=== PATIENT | male | born 1945 | race Caucasian/White ===

== ENCOUNTER → 2023-04-13 10:14 | Outpatient (REF) | payer OTHER, SELFPAY ==
[2023-04-13 10:51] LABS: % Basophils 0.4 % (0-2); % Eosinophils 9.5 % (0-6); % Immature Granulocytes 0.2 % (0-0.5); % Lymphocytes 35.5 % (20.5-51.1); % Neutrophils 44.4 % (42.2-75.2); Absolute Eosinophils 0.5 10^3/uL (0-0.7); Absolute Lymphocytes 1.7 10^3/uL (1.2-3.4); Absolute Monocytes 0.5 10^3/uL (0.1-0.6); Absolute Neutrophils 2.1 10^3/uL (1.4-6.5); Hematocrit 32.6 % (39.0-52.0); Hemoglobin 11.3 g/dL (13.0-18.0); Mean Corp Hgb Conc. 34.7 g/dL (33.0-37.0); Mean Corpuscular Hgb 29.3 pg (27.0-31.0); Mean Corpuscular Volume 84.5 fL (80.0-94.0); Nucleated Red Blood Cells % 0 % (-); Platelet Count 178 10^3/uL (130-400); Red Blood Cell Count 3.86 10^6/uL (4.70-6.10); Red Cell Dist. Width 13.6 % (11.5-14.5); White Blood Cell Count 4.8 10^3/uL (4.8-10.8)
[2023-04-13 11:24] LABS: ALT (SGPT) < 10 U/L (0-50); AST (SGOT) 19 U/L (17-59); Albumin 3.8 g/dl (3.5-5.0); Alkaline Phosphatase 95 U/L (38-126); Blood Urea Nitrogen 24 mg/dl (9-20); Carbon Dioxide 26 mmol/L (22-30); Chloride 109 mmol/L (98-107); Glucose 100 mg/dl (70-99); Potassium 4.1 mmol/L (3.5-5.1); Sodium 139 mmol/L (135-145); Total Bilirubin 0.5 mg/dl (0.2-1.3); Total Protein 6.7 g/dl (6.3-8.2); eGFR 56.93
[2023-04-13 12:18] LABS: Erythrocyte Sed Rate 31 mm/hour (0-20)
[2023-04-13 12:40] LABS: Hepatitis C Antibody Negative (Negative)
[2023-04-15 21:17] LABS: CCP Antibody IgG/IgA 6 Units (0-19)
[2023-04-15 21:28] LABS: ANA, IgG Reflex to HEp-2 None Detected (None Detected)
[2023-04-16 16:19] LABS: Rheumatoid Agglutinin Less Than 10 IU (<10 IU)
[2023-04-16 18:18] LABS: Quantiferon Mitogen minus NIL >10.00 IU/mL; Quantiferon NIL 0.02 IU/mL; Quantiferon Plus TB1 minus NIL 0.01 IU/mL (0.00-0.34); Quantiferon Plus TB2 minus NIL 0.01 IU/mL (0.00-0.34); Quantiferon TB Gold Plus Negative (Negative)
== END ==
LOC: REG 10:14
PROVIDERS: ATTENDING PHYSICIAN Internal Medicine Rheumatology; FAMILY PHYSICIAN Family Medicine
DX: M19.90 Unspecified osteoarthritis, unspecified site (principal)
CPT/HCPCS: 36415; 80053; 85025; 85652; 86038; 86140; 86200; 86430; 86480; 86803

== ENCOUNTER 2023-12-10 07:53 | Emergency (ER) | payer OTHER, SELFPAY ==
[2023-12-10 08:04] VITALS: BP 149/77
[2023-12-10 08:16] VITALS: BP 166/83
--- NOTE | 2023-12-10 08:16 | ED.GENMED ---
History of Present Illness
General
Chief Complaint: Weakness
Time Seen by Provider: 12/10/23 08:10
History of Present Illness
History of Present Illness:
TIME OF INITIAL ENCOUNTER: 8:20 AM
HPI: 2 days ago, the patient started having sore throat, general unwell feeling, sensation of anxiety, and weakness. Yesterday, he thought he is getting better but then had some chills last evening. He has no abdominal pain. He has no shortness
of breath. He has no productive cough. He does not necessarily feel dehydrated.
EXAM:
GENERAL: Well appearing in no distress, but does appear somewhat weak
HEENT: Moist oral mucosa
CARDIOVASCULAR: No murmurs, normal heart rate, regular rhythm, No chest wall tenderness
PULMONARY: No respiratory distress, breath sounds are clear and equal however there are some very questionable very faint rales at the right base
ABDOMEN: Soft with no peritoneal signs, no tenderness
NEUROLOGIC: Excellent strength all extremities, no coordination deficits
PSYCHIATRIC: Appropriate mental status, normal insight and judgement
EXTREMITIES: Nontender, no edema, moves all extremities equally
SKIN: No rash, no lesions
NUMBER AND COMPLEXITY OF PROBLEMS ADDRESSED AT THE ENCOUNTER
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
� Acute Exacerbation and/or Progression of Chronic Illness: This is an acute problem
� Differential Diagnosis includes: Viral syndrome such as COVID/flu, dehydration, EFRAIN, pneumonia, anxiety
AMOUNT AND/OR COMPLEXITY OF DATA TO BE REVIEWED AND ANALYZED
� I performed an independent evaluation of and my interpretation is:
EKG: Sinus 51, normal axis, right bundle branch block with associated ST abnormality, rate is decreased compared to 10/01/2022
CT:
X-rays: Chest x-ray personally reviewed and is unremarkable
Laboratory Studies: White count normal 5.7, hemoglobin 11.2 (which is near baseline), creatinine 1.4 with baseline around 1.2-1.3. COVID and flu testing negative
Other:
� Review of other/old records: The patient was here about a year ago with right-sided ureteral stone managed with laser lithotripsy and stent. Hemoglobin from March 2023 was 11.3.
� Clinical information was obtained by an independent historian: None needed
� Prescriptions/Medications Considered but not given:
� Further testing considered but not performed:
RISK OF COMPLICATIONS AND/OR MORBIDITY OR MORTALITY OF PATIENT MANAGEMENT
� Social determinants of health affecting care: Lives at home with , drove him here
� Discussion with other providers:
� Escalation of care including admission/observation vs risk of discharge considered: The patient does report significant component of anxiety. Will give a dose of IV Ativan. His vital signs are unremarkable. IV fluids also
given as there has been slight worsening of creatinine.
ANY OTHER UPDATES:
9:40 AM: I reassessed patient. Overall the patient feels improved. He feels well enough to go home. We talked about the possibly of a viral syndrome.
Past History
Past History
ED Past Medical History: Cancer (Lymphoma, [place] cell carcinoma), HTN, Hypercholesterolemia and Other (BPH, DARRION CELL CANCER (RADIATION THERAPY SUMMER 2016))
ED Past Surgical History: Cholecystectomy, Orthopedic (Rotator cuff) and Other (Varicocele, LN RESECTION)
Social History
Tobacco: Former smoker
Alcohol: Occasional
Drug: None
Personal:
Living: with family
Family History
Family History: Negative Diabetes, Hypertension, Early CAD, Asthma or Cancer
Phy Exam
Physical Exam
Physical Exam:
See HPI
Course
Orders/Labs/Results
Orders:
Orders
12/10/23 08:22
0.9% Sodium Chloride 1000 ml [Nss] 1,000 ml IV BOLUS
CR Chest - 2 Views Urgent
Comment:
Reason For Exam: chills
12/10/23 08:26
Electrocardiogram (*1) Urgent
Reason for Study: Vertigo / Dizzy
EKG- Treatment ONCE
Lorazepam [Ativan] 1 mg IV NOW STA
12/10/23 08:27
COVID-19 Antigen Urgent
Source: Nasal Swab
Complete Blood Count/With Diff Urgent
Comprehensive Metabolic Panel Urgent
Influenza A+B Rapid Molecular Urgent
NIRALI Source: Nasal Swab
Specimen Description:
Abnormal Lab Results
12/10/23
08:27
RBC 4.00 L 10^6/uL
(4.70-6.10)
Hgb 11.2 L g/dL
(13.0-18.0)
Hct 32.2 L %
(39.0-52.0)
Absolute Monos (auto) 0.7 H 10^3/uL
(0.1-0.6)
Monocytes % 12.7 H %
(1.7-9.3)
BUN 27 H mg/dl
(9-20)
Creatinine 1.4 H mg/dL
(0.7-1.3)
Glucose 116 H mg/dl
(70-99)
AST 16 L U/L
(17-59)
Total Protein 6.0 L g/dl
(6.3-8.2)
12/10/23 08:27
12/10/23 08:27
Vital Signs
Initial and Last Documented VS:
Initial Vital Signs
Temp Pulse Resp BP Pulse Ox
98.5 F 52 16 149/77 98
12/10/23 08:04 12/10/23 08:04 12/10/23 08:04 12/10/23 08:04 12/10/23 08:04
Last Documented Vital Signs
Temp Pulse Resp BP Pulse Ox
98.5 F 52 16 149/77 98
12/10/23 08:04 12/10/23 08:04 12/10/23 08:04 12/10/23 08:04 12/10/23 08:04
*Critical Care Note
Total Time (30-74mins, 75-104mins- exclusive of procedures): Not Applicable
ED Attending Note
-
Portions of this chart may have been created with voice recognition software.� Occasional wrong word or��sound alike� substitutions may have occurred due to the inherent limitations of voice recognition software.
Discharge Plan
Departure
Prescriptions:
No Action
tamsulosin 0.4 MG capsule
0.4 mg PO HS
prednisone 20 mg Tablet
7 mg PO .QAM
finasteride 5 mg Tablet
5 mg PO HS
prednisone
5 mg PO HS
Referrals:
Perfecto Ro, DO [Family Provider] -
Interventions
Interventions:
*Risk Screen - Suicide Last Done: 12/10/23 08:04
*General Assessment Last Done: 12/10/23 08:19
*Neglect/Abuse Screening Last Done: 12/10/23 08:04
*ED COVID-19 Vaccine History Last Done: 12/10/23 08:19
ED- Cardiac Assessment Last Done: 12/10/23 08:19
ED- Neurological Assessment Last Done: 12/10/23 08:19
ED- Pulmonary Assessment Last Done: 12/10/23 08:19
Discharge Date and Time
Print Language: TELUGU
[2023-12-10 08:34] LABS: % Basophils 0.3 % (0-2); % Eosinophils 3.5 % (0-6); % Immature Granulocytes 0.2 % (0-0.5); % Lymphocytes 24.1 % (20.5-51.1); % Monocytes 12.7 % (1.7-9.3); % Neutrophils 59.2 % (42.2-75.2); Absolute Eosinophils 0.2 10^3/uL (0-0.7); Absolute Lymphocytes 1.4 10^3/uL (1.2-3.4); Absolute Monocytes 0.7 10^3/uL (0.1-0.6); Absolute Neutrophils 3.4 10^3/uL (1.4-6.5); Hematocrit 32.2 % (39.0-52.0); Hemoglobin 11.2 g/dL (13.0-18.0); Mean Corp Hgb Conc. 34.8 g/dL (33.0-37.0); Mean Corpuscular Volume 80.5 fL (80.0-94.0); Mean Platelet Volume 9.2 fL (7.4-10.4); Nucleated Red Blood Cells % 0 % (-); Platelet Count 137 10^3/uL (130-400); Red Cell Dist. Width 12.9 % (11.5-14.5); White Blood Cell Count 5.7 10^3/uL (4.8-10.8)
[2023-12-10] MEDS: ATIVAN 1 MG IV (08:35)
[2023-12-10] MEDS: NSS 1000 IV (08:36)
[2023-12-10 08:50] LABS: ALT (SGPT) < 10 U/L (0-50); AST (SGOT) 16 U/L (17-59); Albumin 3.8 g/dl (3.5-5.0); Alkaline Phosphatase 81 U/L (38-126); Blood Urea Nitrogen 27 mg/dl (9-20); Calcium 8.9 mg/dl (8.4-10.2); Carbon Dioxide 27 mmol/L (22-30); Chloride 105 mmol/L (98-107); Glucose 116 mg/dl (70-99); Potassium 4.1 mmol/L (3.5-5.1); Sodium 141 mmol/L (135-145); Total Bilirubin 0.6 mg/dl (0.2-1.3); eGFR 52.09
[2023-12-10 09:00] VITALS: BP 178/84
[2023-12-10 09:06] LABS: COVID-19 Antigen Negative (Negative)
[2023-12-10 10:10] VITALS: BP 155/102
== END 2023-12-10 10:54 | disposition home or self-care (01) ==
LOC: EMR 07:53
PROVIDERS: EMERGENCY PHYSICIAN Emergency Medicine; FAMILY PHYSICIAN Family Medicine
DX: B34.9 Viral infection, unspecified (principal); R07.0 Pain in throat; R53.1 Weakness; F41.9 Anxiety disorder, unspecified; N40.0 Benign prostatic hyperplasia without lower urinary tract symptoms; I25.10 Atherosclerotic heart disease of native coronary artery without angina pectoris; I10 Essential (primary) hypertension; E78.00 Pure hypercholesterolemia, unspecified; Z82.49 Family history of ischemic heart disease and other diseases of the circulatory system; Z85.821 Personal history of Merkel cell carcinoma; Z87.891 Personal history of nicotine dependence; Z90.49 Acquired absence of other specified parts of digestive tract
CPT/HCPCS: 99283; 96374; 96361; 71046; 80053; 85025; 87502; 87811; 93005

== ENCOUNTER 2024-12-29 07:18 | Emergency (ER) | payer OTHER, SELFPAY ==
[2024-12-29 07:22] VITALS: BP 103/65
[2024-12-29 07:51] VITALS: BMI 26.5
--- NOTE | 2024-12-29 08:19 | ED.GENMED ---
History of Present Illness
<Mena Keyes MD, Resident - Last Filed: 12/29/24 14:42>
General
Chief Complaint: Fatigue
Source: patient and family
Time Seen by Provider: 12/29/24 07:43
History of Present Illness
History of Present Illness:
79-year-old male with past medical history of [place] cell carcinoma status post radiation and immunotherapy treatment, non-Hodgkin's lymphoma presents to the ER with fatigue. About 3 weeks ago, the patient was diagnosed with immunotherapy induced
colitis. He was treated by a high-dose prednisone taper starting with 80 mg for 5 days, 60 mg for 5 days etc. etc. 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
steroids to 7 mg of prednisone daily. Since December 24, patient has felt very weak and fatigued. He called Dr. Sibley who then increased his prednisone to 8 mg daily. There has been no change in his energy levels. He endorses sweats however denies
any fevers, runny nose, sore throat, sneezing, ear pain, shortness of breath, cough, nausea, vomiting, diarrhea, new rash, dysuria, hematuria, melena, hematochezia. His only true complaint is fatigue. He thinks it might be due to the lower dose of
prednisone. He came in for evaluation to make sure is not anything else. His baseline BP runs low. Despite no upper respiratory tract infection symptoms, his did a COVID swab this morning which was negative.
He was previously on Keytruda however developed severe arthritis and for the last 6 months he has been on ipilimumab and nivolumab immunotherapy with infusions every 2 weeks. He did have an issue with high blood sugars with keytruda but since he has
been off it that has resolved. He denies ever having diabetes. ([id number] 09/27/22 7.4).
Oncologist: Dr. Desai at [facility]
Engine Maintenance Mechanic: Dr. Sarkis Frazier
Past History
<Mena Keyes MD, Resident - Last Filed: 12/29/24 14:42>
Past History
ED Past Medical History: Cancer (Lymphoma, Darrion cell carcinoma), HTN, Hypercholesterolemia and Other (BPH, DARRION CELL CANCER (RADIATION THERAPY SUMMER 2016))
ED Past Surgical History: Cholecystectomy, Orthopedic (Rotator cuff) and Other (Varicocele, LN RESECTION)
Social History
Tobacco: Former smoker
Alcohol: Occasional
Drug: None
Personal:
Living: with family
Family History
Family History: Negative Diabetes, Hypertension, Early CAD, Asthma or Cancer
Review of Systems
<Mena Keyes MD, Resident - Last Filed: 12/29/24 14:42>
Review of Systems
Allergies reviewed?: Yes
Constitutional: Reports other (Sweats )
EENT: Reports no symptoms
Respiratory: Reports no symptoms
Cardiac: Reports no symptoms
ABD/GI: Reports no symptoms
: Reports no symptoms
Musculoskeletal: Reports no symptoms
Skin: Reports no symptoms
Neurological: Reports no symptoms
Endocrine: Reports no symptoms
Hematologic/Lymphatic: Reports no symptoms
Psychiatric: Reports no symptoms
Phy Exam
<Mena Keyes MD, Resident - Last Filed: 12/29/24 14:42>
Physical Exam
Physical Exam:
General: Well-appearing, nontoxic, sitting up in bed and conversant
Head: Atraumatic
Eyes: PERRLA
ENT: Nasal turbinates not inflamed, normal tympanic membranes, no pharyngeal erythema, moist oral mucosa
Cardiac: Regular S1, S2, no murmurs
Respiratory: Clear breath sounds bilaterally, no wheezes or rails
Abdomen: Soft, nontender, nondistended, normal bowel sounds
Neurological: Cranial nerves II through XII intact, bilateral upper and lower extremity strength 5 out of 5
Extremities: No peripheral edema, no rash
Psych: Calm
Course
<Mena Keyes MD, Resident - Last Filed: 12/29/24 14:42>
Orders/Labs/Results
Orders:
Orders
12/29/24 08:25
0.9% Sodium Chloride 1000 ml [Nss] 1,000 ml IV BOLUS
12/29/24 08:26
Complete Blood Count/With Diff Urgent
Comprehensive Metabolic Panel Urgent
Cortisol, Random Urgent
12/29/24 10:44
Urinalysis Reflex To Culture Urgent
Date Specimen was Collected: 12/29/24
Time Specimen was Collected: 10:41
Urine Microscopic Reflex Cult Urgent
Abnormal Lab Results
12/29/24 12/29/24
08:26 10:44
RBC 3.95 L 10^6/uL
(4.70-6.10)
Hgb 11.4 L g/dL
(13.0-18.0)
Hct 33.5 L %
(39.0-52.0)
Abs Immat Gran (auto) 0.1 H 10^3/uL
(0-0.05)
Absolute Lymphs (auto) 1.1 L 10^3/uL
(1.2-3.4)
Absolute Monos (auto) 0.8 H 10^3/uL
(0.1-0.6)
Immature Gran % 1.4 H %
(0-0.5)
Lymphocytes % 20.4 L %
(20.5-51.1)
Monocytes % 15.5 H %
(1.7-9.3)
BUN 22 H mg/dl
(9-20)
Glucose 128 H mg/dl
(70-99)
AST 14 L U/L
(17-59)
Total Protein 5.7 L g/dl
(6.3-8.2)
Albumin 3.3 L g/dl
(3.5-5.0)
Ur Occult Blood Reflex 3+ A
(Negative)
Urine RBC 7-10 A /HPF
(0-2)
Urine Bacteria (Reflex) Few A
(Negative)
Urine Albumin (Reflex) 1+ A
(Neg - Trace)
12/29/24 08:26
12/29/24 08:26
Vital Signs
Initial and Last Documented VS:
Initial Vital Signs
Temp Pulse Resp BP Pulse Ox
98.7 F 80 16 103/65 96
12/29/24 07:22 12/29/24 07:22 12/29/24 07:22 12/29/24 07:22 12/29/24 07:22
Last Documented Vital Signs
Temp Pulse Resp BP Pulse Ox
98.7 F 86 18 122/68 97
12/29/24 07:22 12/29/24 11:28 12/29/24 11:28 12/29/24 11:28 12/29/24 11:28
<Clifton Boo, DO - Last Filed: 12/29/24 14:25>
Orders/Labs/Results
Orders:
Orders
12/29/24 08:25
0.9% Sodium Chloride 1000 ml [Nss] 1,000 ml IV BOLUS
12/29/24 08:26
Complete Blood Count/With Diff Urgent
Comprehensive Metabolic Panel Urgent
Cortisol, Random Urgent
12/29/24 10:44
Urinalysis Reflex To Culture Urgent
Date Specimen was Collected: 12/29/24
Time Specimen was Collected: 10:41
Urine Microscopic Reflex Cult Urgent
Abnormal Lab Results
12/29/24 12/29/24
08:26 10:44
RBC 3.95 L 10^6/uL
(4.70-6.10)
Hgb 11.4 L g/dL
(13.0-18.0)
Hct 33.5 L %
(39.0-52.0)
Abs Immat Gran (auto) 0.1 H 10^3/uL
(0-0.05)
Absolute Lymphs (auto) 1.1 L 10^3/uL
(1.2-3.4)
Absolute Monos (auto) 0.8 H 10^3/uL
(0.1-0.6)
Immature Gran % 1.4 H %
(0-0.5)
Lymphocytes % 20.4 L %
(20.5-51.1)
Monocytes % 15.5 H %
(1.7-9.3)
BUN 22 H mg/dl
(9-20)
Glucose 128 H mg/dl
(70-99)
AST 14 L U/L
(17-59)
Total Protein 5.7 L g/dl
(6.3-8.2)
Albumin 3.3 L g/dl
(3.5-5.0)
Ur Occult Blood Reflex 3+ A
(Negative)
Urine RBC 7-10 A /HPF
(0-2)
Urine Bacteria (Reflex) Few A
(Negative)
Urine Albumin (Reflex) 1+ A
(Neg - Trace)
12/29/24 08:26
12/29/24 08:26
Vital Signs
Initial and Last Documented VS:
Initial Vital Signs
Temp Pulse Resp BP Pulse Ox
98.7 F 80 16 103/65 96
12/29/24 07:22 12/29/24 07:22 12/29/24 07:22 12/29/24 07:22 12/29/24 07:22
Last Documented Vital Signs
Temp Pulse Resp BP Pulse Ox
98.7 F 86 18 122/68 97
12/29/24 07:22 12/29/24 11:28 12/29/24 11:28 12/29/24 11:28 12/29/24 11:28
<Mena Keyes MD, Resident - Last Filed: 12/29/24 14:42>
MDM/Problems Addressed
Differential Diagnosis Includes:
Adrenal insufficiency, anemia, progression of his cancer, electrolyte imbalance, UTI, Immunotherapy side effect
MDM/Problems Addressed:
No clinical signs of infection however we will run a CBC, CMP, UA to evaluate for anemia, infection, electrolyte abnormality. Will also get a random cortisol level. If significantly low, may consider stress dose of steroids. As patient states his
blood pressure runs around 100s over 60s, he is again conversant with no signs of clinical infection, will hold off on stress dose steroids at this time. Without any runny nose, sore throat, cough will hold off on flu and COVID testing.
08:42
Hg 11.4, last year 12/10/23 hg 11.2 appears to be around baseline making anemia unlikely as a cause of his fatigue.
09:09
CMP no overt electrolyte abnormalities. Reassuring this is not adrenal crisis. Reached out to Dr. Frazier and he stated his baseline prednisone is to treat his arthritis so it is up to our medical discretion whether to give him a prednisone taper or not.
10:32
Random cortisol 9.3 before 10am despite being on the chronic prednisone which is reassuring. BP has improved in the ER to 134/74. Very low suspicion for adrenal crisis. Unsure what is causing his fatigue. UA revealed 3+ blood and few bacteria, but
negative LE, nitrate and WBC making infection highly unlikely. Will discharge with prednisone taper.
Chronic conditions affecting care: Immunosuppressed and Cancer
<Mena Keyes MD, Resident - Last Filed: 12/29/24 14:42>
*Pulse Oximetry
SaO2: 96
Oxygen Mode of Delivery: Room air
Patient hypoxic: no
*Critical Care Note
Total Time (30-74mins, 75-104mins- exclusive of procedures): Not Applicable
Data Reviewed
Review of Other/Old Records Reveals: Labs (Hemoglobin 11.2 on 12/10/2023) and Radiology Studies (Chest x-ray 12/10/2023 no active pulmonary process)
Source: patient and records
ED Attending Note
<Mena Keyes MD, Resident - Last Filed: 12/29/24 14:42>
-
Portions of this chart may have been created with voice recognition software.� Occasional wrong word or��sound alike� substitutions may have occurred due to the inherent limitations of voice recognition software.
<Clifton Boo, DO - Last Filed: 12/29/24 14:25>
ED Attending Note
Patient seen and examined by attending physician: Yes
I performed a history and physical exam of patient and discussed management with resident, I reviewed resident's note and agree with documented findings and plan of care.: Yes
ED Attending Note:
I have reviewed and agree with history treatment plan by Mena Keyes MD. My exam reveals 79-year-old in no acute distress. Blood pressure stable. Possibly symptomatic from decreased prednisone dosing. Do not suspect addisonian crisis. Normal
electrolytes. Normal cortisol level. Discharged to follow-up with primary care. Return precaution given.
Discussed with Dr. Frazier, patient's chain splitter who prescribed the prednisone, he stated he has no recommendations in terms of steroid treatment.
Discharge Plan
Departure
Patient Disposition: Home (Routine Discharge)
Date of Disposition: 12/29/24
Time of Disposition: 11:20
Patient with high blood pressure during this ER visit?: Yes
Discharge Problem:
Fatigue
Instructions: Fatigue (DC)
Prescriptions:
New
prednisone 10 mg Tablet
See Rx Instructions .ROUTE .COMPLEX Qty: 30 0RF
Rx Instructions:
Take By Mouth:
40 mg daily x3 days, 30 mg daily x3 days,
20 mg daily x3 days, 10 mg daily x3 days, then resume home dose.
No Action
tamsulosin 0.4 MG capsule
0.4 mg PO HS
prednisone 20 mg Tablet
7 mg PO .QAM
finasteride 5 mg Tablet
5 mg PO HS
prednisone
5 mg PO HS
Referrals:
Perfecto Ro, DO [Family Provider, Family Practice]
Activity Restrictions/Additional Instructions:
Please follow up with your oncologist for further evaluation of the fatigue.
Interventions
Interventions:
*Risk Screen - Suicide Last Done: 12/29/24 07:22
*General Assessment Last Done: 12/29/24 07:22
*Neglect/Abuse Screening Last Done: 12/29/24 07:22
*ED- Fall Risk Assessment Last Done: 12/29/24 07:52
*ED COVID-19 Vaccine History Last Done: 12/29/24 07:52
*ED Influenza Vaccine History Last Done: 12/29/24 07:52
*Nursing Disposition Last Done: 12/29/24 11:28
Discharge Date and Time
Discharge Date/Time: 12/29/24 11:29
Print Language: CYMRAES
[2024-12-29] MEDS: NSS 1000 IV (08:30)
[2024-12-29 08:40] LABS: Hematocrit 33.5 % (39.0-52.0); Hemoglobin 11.4 g/dL (13.0-18.0); Mean Corp Hgb Conc. 34.0 g/dL (33.0-37.0); Mean Corpuscular Volume 84.8 fL (80.0-94.0); Nucleated Red Blood Cells % 0 % (-); Platelet Count 238 10^3/uL (130-400); Red Cell Dist. Width 12.7 % (11.5-14.5)
[2024-12-29 08:53] LABS: ALT (SGPT) < 10 U/L (0-50); AST (SGOT) 14 U/L (17-59); Albumin 3.3 g/dl (3.5-5.0); Alkaline Phosphatase 77 U/L (38-126); Blood Urea Nitrogen 22 mg/dl (9-20); Calcium 8.5 mg/dl (8.4-10.2); Carbon Dioxide 27 mmol/L (22-30); Chloride 105 mmol/L (98-107); Estimated Creatinine Clearance 56 ml/min; Glucose 128 mg/dl (70-99); Potassium 4.3 mmol/L (3.5-5.1); Sodium 136 mmol/L (135-145); Total Protein 5.7 g/dl (6.3-8.2); eGFR > 60.00
[2024-12-29 09:00] VITALS: BP 134/74
[2024-12-29 09:23] LABS: Cortisol, Random 9.3 ug/dl
[2024-12-29 10:00] VITALS: BP 137/74
[2024-12-29 11:12] LABS: Urine Character Clear (Clear)
[2024-12-29 11:28] VITALS: BP 122/68
[2024-12-29 11:28] LABS: Urine Squamous Cell 0-2 /LPF (Few)
[2024-12-29 11:29] LABS: Urine White Cell 0-2 /HPF (0-5)
== END 2024-12-29 11:29 | disposition home or self-care (01) ==
LOC: EMR 07:18
PROVIDERS: EMERGENCY PHYSICIAN Emergency Medicine; FAMILY PHYSICIAN Family Medicine
DX: R53.1 Weakness (principal); R53.83 Other fatigue; I10 Essential (primary) hypertension; E78.00 Pure hypercholesterolemia, unspecified; N40.0 Benign prostatic hyperplasia without lower urinary tract symptoms; M19.90 Unspecified osteoarthritis, unspecified site; Z79.52 Long term (current) use of systemic steroids; Z82.49 Family history of ischemic heart disease and other diseases of the circulatory system; Z85.72 Personal history of non-Hodgkin lymphomas; Z85.821 Personal history of Merkel cell carcinoma; Z87.891 Personal history of nicotine dependence; Z90.49 Acquired absence of other specified parts of digestive tract; Z92.26 Personal history of immune checkpoint inhibitor therapy; Z92.3 Personal history of irradiation
CPT/HCPCS: 99283; 96360; 80053; 81003; 81015; 82533; 85025